=== PATIENT | female | born 1990 | race Caucasian/White ===

== ENCOUNTER 2020-05-03 01:10 | Emergency (ER) | payer OTHER, SELFPAY ==
[2020-05-03] MEDS ORDERED: LORAZEPAM 1 MG TABLET ONE (01:40)
[2020-05-03] MEDS ORDERED: LIDOCAINE 1% MPF 30 ML VIAL ONE (02:36)
[2020-05-03] MEDS ORDERED: HYDROCODONE/APAP 7.5/325 MG TAB ONE (02:55)
--- NOTE | 2020-05-03 03:04 | EDPHYS ---
Physician Documentation [facility] Name: Randell Yousif Age: 29 yrs Sex: Female : 1990 Arrival Date: 05/03/2020 Time: 01:11 Bed 2 Private MD: ED Physician Richard Benavidez HPI: 05/03 02:42 This 29 yrs old Female presents to ER via Wheelchair with complaints of ma2 laceration s), Foot Injury. 02:42 The patient presents with an injury, pain. Onset: The symptoms/episode began/occurred ma2 suddenly, 1 hour(s) ago. Associated signs and symptoms: Pertinent negatives: nausea, rash, swelling. Severity of symptoms: At their worst the symptoms were moderate, in the emergency department the symptoms are unchanged. The patient has not experienced similar symptoms in the past. Historical: - Allergies: :22 No Known Allergies; sg - PSHx: :22 ; sg - Immunization history:: Flu vaccine status is unknown. - Social history:: Patient/guardian denies using alcohol, street drugs, The patient lives with family, Smoking status: unknown. - Family history:: not pertinent. ROS: 02:42 MS/extremity: Positive for pain, paresthesias, Negative for contusion, deformity, ma2 tenderness, warmth. 02:42 Constitutional: Negative for fever, chills, and weight loss. 02:42 All other systems are negative. Exam: 02:42 Constitutional: This is a well developed, well nourished patient who is awake, alert, ma2 and in no acute distress. Chest/axilla: Normal chest wall appearance and motion. Nontender with no deformity. No lesions are appreciated. Cardiovascular: Regular rate and rhythm with a normal S1 and S2. No gallops, murmurs, or rubs. Normal PMI, no JVD. No pulse deficits. Respiratory: Lungs have equal breath sounds bilaterally, clear to auscultation and percussion. No rales, rhonchi or wheezes noted. No increased work of breathing, no retractions or nasal flaring. Abdomen/GI: Soft, non-tender, with normal bowel sounds. No distension or tympany. No guarding or rebound. No evidence of tenderness throughout. Skin: Warm, dry with normal turgor. Normal color with no rashes, no lesions, and no evidence of cellulitis. MS/ Extremity: large laceration flap of right foot flap is 5x5 cm, deep, Pulses equal, no cyanosis. Neurovascular intact. Full, normal range of motion. Neuro: Awake and alert, GCS 15, oriented to person, place, time, and situation. Cranial nerves II-XII grossly intact. Motor strength 5/5 in all extremities. Sensory grossly intact. Cerebellar exam normal. Normal gait. 02:59 Back: No spinal tenderness. No costovertebral tenderness. Full range of motion. MS/ ma2 Extremity: laceration of left foot with deep flap like laceration with mutiple tendons injury of great toe, Pulses equal, no cyanosis. Neurovascular intact. Full, normal range of motion. Vital Signs: 01:25 BP 110 / 67; Resp 18; Temp 98.5; Pulse Ox 100% on R/A; mg2 02:39 BP 121 / 93; Pulse 120; Resp 18; Pulse Ox 100% on R/A; mg2 MDM: 01:33 Patient medically screened. ma2 03:00 Differential diagnosis: fracture, sprain, foreign body, deep laceration of plantar ma2 aspect of left foot with skin flap and laceration of multiple tendons of great toe plantar flexors. Data reviewed: vital signs, nurses notes. Counseling: I had a detailed discussion with the patient and/or guardian regarding: the historical points, exam findings, and any diagnostic results supporting the discharge/admit diagnosis, the presence of at least one elevated blood pressure reading (>120/80) during this emergency department visit. Response to treatment: the patient's symptoms have markedly improved after treatment. ED course: patient needs a ventilating expert not available in our hospital will transfer for higher level of care. . 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 Exp: mg2 03/29/2022. Lot #: [id number]. } Route: IM; Site: right deltoid; 03:37 Follow up: Response: No adverse reaction mg2 Disposition: 05/03/20 03:03 Transfer ordered to [facility]. Diagnosis is Laceration without foreign body, left foot - with laceration to plantar flexor of great toe . - Reason for transfer: Higher level of care. - Accepting physician is Dr. Mcfadden. - Condition is Stable. - Problem is new. - Symptoms are unchanged. Signatures: Dispatcher [employer] EDMS Fortino Ruelas RN RN Richard Benavidez MD MD ma2 Zachariah Ocampo RN RN mg2 Saad Mondragon RN RN rr5 Corrections: (The following items were deleted from the chart) 03:25 03:03 05/03/2020 03:03 Transfer ordered to [facility]. Diagnosis is ma2 Laceration without foreign body, left foot - with laceration to plantar flexor of great toe . Reason for transfer: Higher level of care. Accepting physician is os. Condition is Stable. Problem is new. Symptoms are unchanged. ma2 03:55 03:25 05/03/2020 03:03 Transfer ordered to [facility]. Diagnosis is mg2 Laceration without foreign body, left foot - with laceration to plantar flexor of great toe . Reason for transfer: Higher level of care. Accepting physician is Dr. Mcfadden. Condition is Stable. Problem is new. Symptoms are unchanged. ma2
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
[2020-05-03] MEDS ORDERED: TETANUS & DIPHTHERIA TOX,ADULT 0.5 ML VIAL ONE (03:48)
--- NOTE | 2020-05-03 09:38 | RAD REPORT ---
EXAM DESCRIPTION: RAD - Foot Left 3 View - 05/03/2020 2:13 am CLINICAL HISTORY: Left Foot pain status post injury FINDINGS: No fracture or dislocation is seen. A radiopaque foreign body is not visualized
[2020-05-03 20:40] VITALS: TEMP 98.5; O2SAT 100
[2020-05-03 20:41] VITALS: BP 121/93
== END 2020-05-03 03:55 | disposition short-term general hospital (02) ==
LOC: ER 01:10
DX: S96.022A Laceration of muscle and tendon of long flexor muscle of toe at ankle and foot level, left foot, initial encounter (principal); W25.XXXA Contact with sharp glass, initial encounter; Y93.89 Activity, other specified; Y92.89 Other specified places as the place of occurrence of the external cause; Z23 Encounter for immunization
CPT/HCPCS: 90471; 90714; 99285

== ENCOUNTER 2020-12-19 23:03 | Emergency (ER) | payer SELFPAY ==
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
[2020-12-19 23:45] VITALS: BP 149/102; TEMP 98.3; O2SAT 100
--- OUTSIDE RECORDS SUMMARY | 2020-12-20 23:27 | XMS REPORT | Continuity of Care Document ---
:1990 Author Organization [facility] Address [address] [place] [address] Care Team Providers Name Role Phone Provider, Urgent Care Attending Clinician Unavailable Bonifacio WANG E Attending Clinician Eva VALDOVINOS Attending Clinician Unavailable Doctor Unassigned, Name Attending Clinician Unavailable Problems Condition Condition Condition Status Onset Resolution Last Treating Co mments Source Name Details Category Date Date Treatment Clinician Date No known No known Disease Unive rs active active ity of problems problems [facility] Allergies, Adverse Reactions, Alerts Allergy Allergy Status Severity Reaction(s) Onset Inactive Treating Comm ents Source Name Type Date Date Clinician NO KNOWN Drug Active Univers ALLERGIE Class ity of S [facility] Social History Social Habit Start Date Stop Date Quantity Comments Source Exposure to Not sure [facility] SARS-CoV-2 (event) Medica l Branch Sex Assigned At [birth year] [place] [facility] 00:00:00 00:00:00 [facility] Smoking Status Start Date Stop Date Source Unknown if ever smoked [facility] Medications Ordered Filled Start Stop Current Ordering Indication Dosage Frequency Signature Comments Components Source Medication Medication Date Date Medication? Clinician (SIG) Name Name methylPREDN 2020- No [id number] 80mg U nivers ISolone 05-31 ity of acetate 18:45: 17:38 [place] (DEPO-MEDRO 00 :00 Medical L) Branch injection 80 mg methylPREDN 2020- No [id number] 80mg 80 mg, Univers ISolone 05-31 Intramuscu ity o f acetate 18:45: 17:38 lar, ONCE, [place] as (DEPO-MEDRO 00 :00 1 dose, Medic al L) Sat Branch injection 05/31/20 at 80 mg 1345, Routine amoxicillin 2020- No [id number] 1{tbl} Take 1 Univers -clavulanat 05-31 tablet by it y of e 00:00: 04:59 mouth 2 [place] (AUGMENTIN) 00 :00 (two) Medical 875-125 mg times Branch per tablet daily for 7 days. Vital Signs Vital Name Observation Time Observation Value Comments Source Systolic blood 2020-05-31 16:56:00 122 mm[Hg] Univer sity of [facility] Diastolic blood 2020-05-31 16:56:00 84 mm[Hg] Unive rsity [facility] Heart rate 2020-05-31 16:56:00 74 /min [facility] Body temperature 2020-05-31 16:56:[address] [facility] height 2020-05-31 16:56:00 162.6 cm [facility] Body weight 2020-05-31 16:56:00 52.617 kg [facility] BMI 2020-05-31 16:56:00 19.91 kg/m2 [facility] Oxygen saturation in 2020-05-31 16:56:00 99 /min [facility] Arterial blood by [facility] Pulse oximetry Branch Procedures This patient has no known procedures. Encounters Start End Encounter Admission Attending Care Care Encounter Source Date/Time Date/Time Type Type Clinicians Facility Department ID 2020-05-31 2020-05-31 Urgent Provider, [facility] [id number] Univers 11:50:25 12:10:25 Dimitry Andrade [facility] [id number] [facility] [id number] [place] as Professio [phone] Fl dical [facility] [address] 2020-05-31 2020-05-31 Outpatient R BONIFACIO [facility] [id number] Univers 11:40:00 11:40:00 DIMITRY farfan [facility] 2020-05-31 2020-05-31 Letter Doctor LICHA [id number] Univers 00:00:00 00:00:00 (Out) Unassigned, SANTOS [id number] ity of [facility] [id number] [place] as [phone] [place] [address] Branch 2020-05-31 2020-05-31 Letter Doctor LICHA [id number] Univers 00:00:00 00:00:00 (Out) Unassigned, SANTOS [id number] ity of [facility] [id number] [place] as [phone] [place] [address] Branch Results This patient has no known results.
== END 2020-12-19 23:34 ==
LOC: ER 23:03
DX: Z04.71 Encounter for examination and observation following alleged adult physical abuse (principal)
CPT/HCPCS: 99284

== ENCOUNTER 2022-07-07 13:38 | Emergency (ER) | payer SELFPAY ==
--- OUTSIDE RECORDS SUMMARY | 2022-07-07 13:41 | XMS REPORT | Continuity of Care Document ---
:1990 Author Organization [facility] t Address [address] [place] [address] Care Team Providers Name Role Phone Provider, [facility] Attending Clinician Unavailable Dimitry Valdovinos MD Attending Clinician DIMITRY VALDOVINOS Attending Clinician Unavailable Doctor Unassigned, [place] Attending Clinician Unavailable Problems Condition Condition Condition Status Onset Resolution Last Treating Co mments Source Name Details Category Date Date Treatment Clinician Date No known No known Disease Unive rs active active ity of problems problems [facility] Allergies, Adverse Reactions, Alerts Allergy Allergy Status Severity Reaction(s) Onset Inactive Treating Comm ents Source Name Type Date Date Clinician NO KNOWN Drug Active Univers ALLERGIE Class ity of S [facility] Social History Social Habit Start Date Stop Date Quantity Comments Source Exposure to Not sure [facility] SARS-CoV-2 (event) Medica l Branch Sex Assigned At [birth year] [facility] 00:00:00 00:00:00 [facility] Smoking Status Start Date Stop Date Source Unknown if ever smoked [facility] Medications Ordered Filled Start Stop Current Ordering Indication Dosage Frequency Signature Comments Components Source Medication Medication Date Date Medication? Clinician (SIG) Name Name methylPREDN 2020- No [id number] 80mg U nivers ISolone 05-31 ity of acetate 18:45: 17:38 [place] (DEPO-MEDRO 00 :00 Medical L) Branch injection 80 mg methylPREDN 2020- No [id number] 80mg 80 mg, Univers ISolone 05-31 Intramuscu ity o f acetate 18:45: 17:38 lar, ONCE, [place] (DEPO-MEDRO 00 :00 1 dose, Medic al L) Sat Branch injection 05/31/20 at 80 mg 1345, Routine amoxicillin 2020- No [id number] 1{tbl} Take 1 Univers -clavulanat 05-31 tablet by it y of e 00:00: 04:59 mouth 2 [place] (AUGMENTIN) 00 :00 (two) Medical 875-125 mg times Branch per tablet daily for 7 days. Vital Signs Vital Name Observation Time Observation Value Comments Source Systolic blood 2020-05-31 16:56:00 122 mm[Hg] Univer sity [facility] Diastolic blood 2020-05-31 16:56:00 84 mm[Hg] [facility] 2020-05-31 16:56:00 74 /min [facility] Body temperature 2020-05-31 16:56:00 36.89 [facility] Body height 2020-05-31 16:56:00 162.6 cm [facility] Body weight 2020-05-31 16:56:00 52.617 kg [facility] BMI 2020-05-31 16:56:00 19.91 kg/m2 [facility] Oxygen saturation in 2020-05-31 16:56:00 99 /min [facility] Arterial blood by [facility] Pulse oximetry Branch Procedures This patient has no known procedures. Encounters Start End Encounter Admission Attending Care Care Encounter Source Date/Time Date/Time Type Type Clinicians Facility Department ID 2020-05-31 2020-05-31 Urgent Provider, [facility] [id number] Univers 11:50:25 12:10:25 Care Dimitry Valdovinos [id number] [id number] [place] Professio [phone] Co dical [facility] [address] [place] [address] 2020-05-31 2020-05-31 Outpatient R BONIFACIO [facility] [id number] Univers 11:40:00 11:40:[address] [facility] [place] [place] 2020-05-31 2020-05-31 Letter Doctor HURT [id number] Univers 00:00:00 00:00:00 (Out) Unassigned, SANTOS [id number] ity of [place] [facility] [id number] [place] as [phone] [place] [address] Branch 2020-05-31 2020-05-31 Letter Doctor LICHA [id number] Univers 00:00:00 00:00:00 (Out) Unassigned, SANTOS [id number] [facility] [place] [facility] [id number] [place] as [phone] [place] [address] Branch Results This patient has no known results.
--- NOTE | 2022-07-07 14:44 | RAD REPORT ---
EXAM DESCRIPTION: RAD - Foot Left 3 View - 07/07/2022 2:20 pm CLINICAL HISTORY: PAIN COMPARISON: Foot Left 3 View dated 05/03/2020 TECHNIQUE: Left foot, 3 views. FINDINGS: No fracture, dislocation or periosteal reaction. No air or foreign body in the soft tissues. IMPRESSION: Negative left foot radiographs.
--- NOTE | 2022-07-07 14:58 | EDPHYS ---
Physician Documentation [facility] Name: Randell Yousif Age: 31 yrs Sex: Female : 1990 Arrival Date: 07/07/2022 Time: 13:38 Bed 11 Private MD: ED Physician Maverick Mendez HPI: 07/07 14:42 This 31 yrs old Female presents to ER via Ambulatory with complaints of Foot bs3 Injury. 14:42 Patient has a history of anxiety depression history of felt laceration complicated by bs3 multiple tendon injuries status post partial repair was supposed to get outpatient follow-up but never was able to presents with increased pain after being on her feet for several days at work she feels like 2 weeks ago she heard a pop while she was walking it is in the base of her foot. 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 - Social history:: Smoking status: Patient reports the use of cigarette tobacco products, smokes one-half pack cigarettes per day. ROS: 14:42 Constitutional: Negative for fever, chills bs3 14:42 All other systems are negative. Exam: 14:42 Constitutional: This is a well developed, well nourished patient who is awake, alert, bs3 and in no acute distress. Head/Face: Normocephalic, atraumatic. Eyes: Pupils equal round and reactive to light, extra-ocular motions intact. Lids and lashes normal. Skin: Warm, dry with normal turgor. Normal color with no rashes, no lesions, and no evidence of cellulitis. MS/ Extremity: Patient points to the sole of her foot for the location of her pain she is well-appearing here the incision is well-healed there is no swelling no erythema no fluctuance Neuro: Awake and alert, GCS 15, oriented to person, place, time, and situation. Cranial nerves II-XII grossly intact. Motor strength 5/5 in all extremities. Sensory grossly intact. Psych: Awake, alert, with orientation to person, place and time. Behavior, mood, and affect are within normal limits. Vital Signs: 13:55 BP 140 / 74; Pulse 90; Resp 16; Temp 98.2; Pulse Ox 100% ; Weight 65.77 kg; Height 5 mb9 ft. 4 in. ; Pain 0/10; 13:55 Body Mass Index 24.89 (65.77 kg, 162.56 cm) mb9 13:55 Pain Scale: Adult mb9 MDM: 13:45 Patient medically screened. bs3 14:42 Data reviewed: vital signs, nurses notes. ED course: Patient with foot pain after bs3 standing for long time she needs outpatient follow-up with podiatry and definitive treatment as she endorses but due to her work situation and finances she is unable to well rule out occult fracture advised outpatient follow-up with Ortho/podiatry as soon as possible. 14:57 ED course: X-ray negative for acute fracture or dislocation advise outpatient follow-up.bs3 07/07 13:54 Order name: Foot Left 3 View XRAY; Complete Time: 14:57 bs3 Administered Medications: No medications were administered Disposition Summary: 07/07/22 14:58 Discharge Ordered Location: Home bs3 Problem: new bs3 Symptoms: have improved bs3 Condition: Stable bs3 Diagnosis - Contusion of foot bs3 Followup: bs3 - With: Private Physician - When: 1 week - Reason: Re-evaluation by your physician Discharge Instructions: - Discharge Summary Sheet bs3 - Foot Sprain bs3 - Foot Contusion, [id number] bs3 Forms: - Medication Reconciliation Form bs3 - Thank You Letter bs3 - Antibiotic Education bs3 - Prescription Opioid Use bs3 - Work release form mb9 Signatures: Dispatcher [employer] Maverick Jean Baptiste MD MD bs3 Renetta Lynn, RN RN mb9
--- NOTE | 2022-07-07 14:58 | ER ---
Nurse's Notes [facility] Name: Randell Yousif Age: 31 yrs Sex: Female : 1990 Arrival Date: 07/07/2022 Time: 13:38 Bed 11 Private MD: Diagnosis: Contusion of foot Presentation: 07/07 13:55 Chief complaint: Patient states: "I'm having issues with my left foot. I had a huge mb9 accident a couple years ago. Over the past week or so, I felt a weird pop in my foot that brought me to my knees. I've been icing it, putting a brace on it, and medicating. I just need to make sure everything is ok". Coronavirus screen: Vaccine status: Patient reports being unvaccinated. Ebola Screen: No symptoms or risks identified at this time. Initial Sepsis Screen: Does the patient meet any 2 criteria? No. Patient's initial sepsis screen is negative. Does the patient have a suspected source of infection? No. Patient's initial sepsis screen is negative. Risk Assessment: Do you want to hurt yourself or someone else? Patient reports no desire to harm self or others. Onset of symptoms was July 07, 2022. 13:55 Method Of Arrival: Ambulatory [facility] 13:55 Acuity: DENISE 4 mb9 Triage Assessment: 15:32 General: Appears in no apparent distress. Behavior is calm, cooperative. 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 - Social history:: Smoking status: Patient reports the use of cigarette tobacco products, smokes one-half pack cigarettes per day. Screenin:36 [facility] ED Fall Risk Assessment (Adult) History of falling in the last 3 months, iw including since admission. Abuse screen: Denies threats or abuse. Denies injuries from another. Nutritional screening: No deficits noted. Tuberculosis screening: No symptoms or risk factors identified. Assessment: 13:55 General: Appears in no apparent distress. Pain: Complains of pain in left foot. Neuro: iw Level of Consciousness is awake, alert, obeys commands, Oriented to person, place, time, situation, Moves all extremities. Full function. Cardiovascular: Patient's skin is warm and dry. Respiratory: Respiratory effort is even, unlabored, Respiratory pattern is regular. Derm: Skin is intact, is healthy with good turgor. Musculoskeletal: Range of motion: intact in all extremities, Reports pain in left foot. Vital Signs: 13:55 BP 140 / 74; Pulse 90; Resp 16; Temp 98.2; Pulse Ox 100% ; Weight 65.77 kg; Height 5 mb9 ft. 4 in. ; Pain 0/10; 13:55 Body Mass Index 24.89 (65.77 kg, 162.56 cm) mb9 13:55 Pain Scale: Adult mb9 ED Course: 13:44 Patient arrived in ED. im 13:45 Maverick Mendez MD is Attending Physician. bs3 13:57 Triage completed. mb9 13:58 Arm band placed on. mb9 13:58 Patient has correct armband on for positive identification. iw 14:22 Foot Left 3 View XRAY In Process Unspecified. EDMS 14:52 Lindsey Horn, RN is Primary Nurse. iw 15:35 No provider procedures requiring assistance completed. Patient did not have IV access iw during this emergency room visit. Administered Medications: No medications were administered Medication: 15:35 VIS not applicable for this client. iw Outcome: 14:58 Discharge ordered by . bs3 15:35 Discharged to home ambulatory. iw 15:35 Condition: good 15:35 Discharge instructions given to patient, Instructed on discharge instructions, follow up and referral plans. Demonstrated understanding of instructions, follow-up care. 15:36 Patient left the ED. mb9 Signatures: Dispatcher [employer] EDMS Lindsey Horn, RN RN Maverick Ramon MD MD bs3 Renetta Lynn RN RN mb9 Peyton Lai im
[2022-07-07 16:01] VITALS: BP 140/74; TEMP 98.2; O2SAT 100
== END 2022-07-07 15:36 | disposition home or self-care (01) ==
LOC: ER 13:38
DX: S90.32XA Contusion of left foot, initial encounter (principal)
CPT/HCPCS: 99283